=== PATIENT | female | born 1985 | race American Indian/Alaskan Native ===

== ENCOUNTER 2020-07-31 09:31 | Inpatient (IN) | payer OTHER ==
--- NOTE | 2020-07-29 12:53 | History and Physical Report ---
History of Present Illness Date of examination: 07/26/20 Date of admission: 07/31/2020 Chief complaint: here for c/s History of present illness: Pt presents for repeat c/s. She does not desire BTL at this time.All risk/benefits/alternatives were d/w pt and questions were addressed and answered. Consents signed and placed on the chart. EDC Confirmation: 08/06/2020 Gestational Age: 12 3/7 weeks Past History : 5 Term Births: 1 Premature Births: 1 Living Children: 2 Para: 1 Mult. Births: 0 Prev : 0 Aborta: 2 Elect. Ab: 2 Spont. Ab: 0 Ectopics: 0 # 1 Delivery date: 11/13/2008 Weeks Gestation: 41 Delivery type: Vaginal Anesthesia type: epidural Delivery location: [facility] Sex: male weight: 7.94 # 2 Delivery date: 07/27/2011 Weeks Gestation: 31 Delivery type: Anesthesia type: spinal Delivery location: [place] [facility] Sex: Male Comments: Emergency # 3 Delivery date: 05/2018 Delivery type: EAB # 4 Comments: EAB Past Medical History: Reviewed history from 12/25/2008 and no changes required: Negative Past Medical History no hx of dvt while taking ocp Past Surgical History: Reviewed history from 10/26/2018 and no changes required: negative Past Medical History Anesthesia Complications: negative Anemia: negative Autoimmune Disorder: negative Bleeding Disorder: negative Blood Transfusions: negative Breast Disease: negative Diabetes: negative Heart Disease: negative Hypertension: negative Hepatitis/Liver Disease: negative Kidney Disease/UTI: negative Neurologic/Epilepsy/Migraines: negative Phlebitis/Varicosities: negative Psychiatric: negative Pulmonary Disease/Asthma: negative Thyroid Disease: negative Hospitalizations: negative Surgery (Non-gas prover): negative Abnormal PAP: positive TYLER Exposure: negative Infertility: negative Uterine Anomaly: negative Uterine Surgery (not C/S): negative Other Gynecologic Problems: negative Social Hx: Patient is single non smoker Smoking History: Patient currently smokes every day. Infection History Hx of STD: Trich, [place] HIV Risk Eval: no Hepatitis B Risk Eval: low risk Personal hx. of genital herpes: no Partner hx. of genital herpes: no Rash, Viral, or Febrile illness since last LMP? no Varicella/Chicken Pox Status: No Genetic History Congenital Heart Defect: Mom: no Dad: unknown Nichole Disease: Mom: no Dad: unknown Thalassemia Mom: no Dad: unknown Neural Tube Defect Mom: no Dad: unknown Down's Syndrome Mom: no Dad: unknown Greg-Sachs Mom: no Dad: unknown Sickle Cell Disease/Trait Mom: no Dad: unknown Hemophilia Mom: no Dad: unknown Muscular Dystrophy Mom: no Dad: unknown Cystic Fibrosis Mom: no Dad: unknown [place] Chorea Mom: no Dad: unknown Mental Retardation Mom: no Dad: unknown Fragile X Mom: no Dad: unknown Other Genetic/Chromosomal Disorder Mom: no Dad: unknown Child w/other defect Mom: no Dad: unknown Enviromental Exposures Xray Exposure: no Medication, drug, or alcohol use since LMP: no Chemical/Other Exposure: no Exposure to Cat Liter: no Hx of Parvovirus (Fifth Disease): no Occupational Exposure to Children: none Active Medications: VITAMIN AND MINERAL 28-0.8 MG ORAL TABLET ( VIT-FE FUMARATE-FA) ZOFRAN ODT 8 MG ORAL TABLET DISINTEGRATING (ONDANSETRON) 1 po q12hrs prn Current Allergies (reviewed today): * NKDA (Critical) Past History Past Medical History: other (see hpi) Past Surgical History: other (see hpi) [employer] History: other (see hpi) Social history: no significant social history, single - Obstetrical History Expected Date of Delivery: 08/06/20 Actual Gestation: 38 Week(s) 6 Day(s) : 5 Para: 2 Hx # Term Pregnancies: 1 Number of Pregnancies: 1 Induced : 2 Number of Living Children: 2 Review of Systems All systems: negative - Physical Exam Breasts: Positive: deferred Cardiovascular: Normal S1, Normal S2 Lungs: Positive: Clear to auscultation, Normal air movement Abdomen: Positive: normal appearance, soft. Negative: distention, tenderness, guarding Genitourinary (Female): Positive: other (deferred) Extremities: Positive: normal. Negative: tenderness, edema Deep Tendon Reflex Grade: Normal +2 - Obstetrical FHR: auscultation normal Results All other labs normal. Assessment and Plan - Patient Problems (1) 39 weeks gestation of Status: Acute (2) Previous section complicating Status: Acute Plan to address problem: -pt desires repeat c/s -all risk, benefits and alternatives were d/w pt and questions were addressed and answered. -consents signed and given to pt to present at time of c/s on 07/31/2020
[~2020-07-31 09:31] MED LIST: EMLA CREAM 5 GM TP PRN
[2020-07-31] MEDS ORDERED: FAMOTIDINE 20 MG/2 ML INJ IV SCH (10:00)
[2020-07-31] MEDS ORDERED: BICITRA ORAL LIQD 30ML PO SCH (10:00)
[2020-07-31] MEDS ORDERED: OXYTOCIN DRIP 30 UNITS/500 ML BAG IV SCH (10:00)
[2020-07-31] MEDS ORDERED: ceFAZolin/Water 2 GM/20 ML 2 GM/20 ML SYRINGE IV NR (10:00)
[2020-07-31] MEDS ORDERED: LACTATED RINGERS 1,000 ML IV SCH (10:00)
[2020-07-31] MEDS ORDERED: METOCLOPRAMIDE 10 MG/2 ML INJ IV SCH (10:00)
[2020-07-31 10:46] LABS: Basophils % (Auto) 0.4 % (0.0-1.8); Eosinophils # (Auto) 0.2 K/mm3 (0.0-0.4); Eosinophils % (Auto) 2.9 % (0.0-4.3); Hematocrit 33.7 % (30.3-42.9); Hemoglobin 11.2 gm/dl (10.1-14.3); Lymphocytes # (Auto) 1.9 K/mm3 (1.2-5.4); Lymphocytes % (Auto) 27.7 % (13.4-35.0); Mean Corpuscular HGB Conc 33 % (30-34); Mean Corpuscular Volume 84 fl (79-97); Monocytes # (Auto) 0.5 K/mm3 (0.0-0.8); Monocytes % (Auto) 7.5 % (0.0-7.3); Platelet Count 194 K/mm3 (140-440); Red Blood Count 4.04 M/mm3 (3.65-5.03); Red Cell Distribution Width 15.4 % (13.2-15.2)
--- NOTE | 2020-07-31 11:23 | Anesthesia Day of Surgery ---
Anesthesia Day of Surgery - Day of Surgery Patient Examined: Yes Patient H&P Reviewed: Yes Patient is NPO: Yes Beta Blockers: No Cardiac Clearance: No Pulmonary Clearance: No Tylor's Test: N/A
[2020-07-31] MEDS ORDERED: HYDROmorphone 1 MG/1 ML INJ IV PRN (11:25)
[2020-07-31] MEDS ORDERED: ONDANSETRON 4 MG/2 ML INJ IV PRN (11:25)
[2020-07-31] MEDS ORDERED: NALOXONE 0.4 MG/1 ML INJ IV PRN ×2 (11:25→13:34)
--- NOTE | 2020-07-31 11:25 | Anesthesia Consultation ---
Anesthesia Consult and Med Hx Date of service: 07/31/20 - Airway Anesthetic Teeth Evaluation: Poor ROM Head & Neck: Adequate Mental/Hyoid Distance: Adequate Mallampati Class: Class II Intubation Access Assessment: Probably Good - Pulmonary Exam CTA: Yes - Cardiac Exam Cardiac Exam: RRR - Pre-Operative Health Status ASA Pre-Surgery Classification: ASA2 Proposed Anesthetic Plan: Spinal - Pulmonary Hx Smoking: No Hx Asthma: No Hx Respiratory Symptoms: No SOB: No COPD: No Home Oxygen Therapy: No Hx Pneumonia: No Hx Sleep Apnea: No - Cardiovascular System Hx Hypertension: No Hx Coronary Artery Disease: No Hx Heart Attack/AMI: No Hx Angina: No Hx Percutaneous Transluminal Coronary Angioplasty (PTCA): No Hx Cardia Arrhythmia: No Hx Pacemaker: No Hx Internal Defibrillator: No Hx Valvular Heart Disease: No Hx Heart Murmur: No Hx Peripheral Vascular Disease: No - Central Nervous System Hx Neuromuscular Disorder: No Hx Seizures: No CVA: No Hx Back Pain: No Hx Psychiatric Problems: No - Gastrointestinal Hx Ulcer: No Hx Gastroesophageal Reflux Disease: No - Endocrine Hx Renal Disease: No Hx End Stage Renal Disease: No Hx Cirrhosis: No Hx Liver Disease: No Hx Insulin Dependent Diabetes: No Hx Non-Insulin Dependent Diabetes: No Hx Thyroid Disease: No Hx Hypothyroidism: No Hx Hyperthyroidism: No - Hematic Hx Anemia: No Hx Sickle Cell Disease: No - Other Systems Hx Alcohol Use: No Hx Substance Use: No Hx Cancer: No Hx Obesity: Yes
[2020-07-31] MEDS ORDERED: KETOROLAC 30 MG/1 ML INJ ONE (11:45)
[2020-07-31] MEDS ORDERED: BUPIVACAINE/PF (0.5%) 5 MG/1 ML 30 ML VIAL INFILTRATI ONE (11:59)
[2020-07-31] MEDS ORDERED: PHENYLEPHRINE/NS 1,000 MCG/10 ML SYRINGE (OR USE) IV ONE (11:59)
[2020-07-31] MEDS ORDERED: dexAMETHasone 20 MG/5 ML VIAL ONE (11:59)
[2020-07-31] MEDS ORDERED: ONDANSETRON 4 MG/2 ML INJ ONE (12:11)
[2020-07-31] MEDS ORDERED: SODIUM CHLORIDE 0.9% 100 ML ONE (12:11)
--- NOTE | 2020-07-31 12:44 | Progress Note ---
Spinal Anesthesia Block - Spinal Anesthesia Block Start Time: 11:48 Stop Time: 11:53 Performed by:: EILEEN ESCALONA Procedure: Patient IDed, H&P reviewed, all questions and concerns were answered, and consent was signed. Timeout was performed at bedside. Patient in sitting position. Sterile prep and drape was performed. [3] ml of 1% lidocaine skin wheal at L[3]- L [4]. Needle introducer advanced. 25 gauge spinal needle advanced. Clear, free flowing CSF. negative blood, negative paresthesia. Spinal dose given. All needles removed. Patient tolerated procedure.
--- NOTE | 2020-07-31 12:45 | Progress Note ---
Subjective Date of service: 07/31/20 Interval history: Patient consented for TAP block for post surgical pain management. Patient identified, monitors placed, and time out performed. TAP identified bilaterally via ultrasound. Skin prepped bilaterally with [chlorhexidine] and [22g stimuplex] needle advanced to the TAP. [Marcaine 0.22% 35ml] injected under ultrasound guidance on the [left] side. [Marcaine 0.22% 35ml] injected under ultrasound guidance on the [right] side. Negative aspiration every 5mL, No change in heart rate or rhythm. Patient tolerated the procedure well. No apparent complications seen. Objective - Constitutional Vitals: Vital Signs - 12hr 07/31/20 07/31/20 07/31/20 10:25 11:00 11:05 Temperature 98.8 F Pulse Rate 85 85 87 Respiratory 16 Rate Blood Pressure 130/68 Blood Pressure 130/68 [Left] O2 Sat by Pulse 97 97 97 Oximetry 07/31/20 07/31/20 11:10 11:15 Temperature Pulse Rate 86 89 Respiratory Rate Blood Pressure Blood Pressure [Left] O2 Sat by Pulse 97 97 Oximetry - Labs CBC & Chem 7: 07/31/20 10:29 Labs: Abnormal lab results 07/31/20 Range/Units 10:29 RDW 15.4 H (13.2-15.2) % [place] % (Auto) 7.5 H (0.0-7.3) % Regional Anesthesia Block - Regional Anesthesia Block Performed By:: EILEEN ESCALONA
--- NOTE | 2020-07-31 13:33 | Operative Report ---
Operative Report Operative Report: Date of procedure: 07/31/2020 Pre-operative diagnosis: 39 weeks Previous section Post-operative diagnosis: Same Procedure name(s): Repeat low T incision section via Pfannenstiel skin incision Vacuum assisted delivery Lysis of adhesions Surgeon: Dr. Castellanos High Risk Ob: Ms. Rika Ye CST Anesthesia: Spinal EBL: 1 L Urine output: 100 mL of clear urine out at end of the procedure Fluids: 700 mL Findings: Liveborn female weight 6 pounds 12 ounces Apgars of 8 and 9 at 1 and 5 minutes Dense adhesions of the omentum and anterior abdominal wall to the left anterior surface of the uterus Normal ovaries normal tubes bilaterally Indications: Patient presents for scheduled repeat section. All risk benefits and alternatives were discussed with the patient. Consents were signed and placed on the chart. Procedure: Patient was taking to the operating room. Patient was then prepped and draped in sterile fashion after anesthesia was found to be adequate. A low transverse skin incision was made with the scalpel through previous incisional s car and carried down to the underlying layer of fascia with the Bovie. The fascia was then incised in the midline and this incision was extended bilaterally with the Bovie. The superior aspect of the fascia was grasped with Jennifer clamps tented upward and dissected off of the anterior rectus muscles with the scalpel. In similar fashion the inferior aspect of the fascia was grasped with Jennifer clamps tented upward and dissected off of the anterior rectus muscles. The rectus muscles were then bluntly divided in the midline. The peritoneum was identified and entered into sharply. The Sabas retractor was placed the bladder blade was placed. A lower transverse uterine incision was made with the scalpel and extended bilaterally with the bandage scissors. Artificial rupture of membranes was performed yielding [clear amniotic fluid]. The low transverse incision was then extended superiorly to create a T-incision to facilitate delivery of the infant head. The Kiwi vacuum was applied with 2 pop opts with delivery of the head with the third application. Care was taken not to place of the anterior fontanelles. Should be noted that there were 2 nuchal cords that were easily reduced at the time of delivery of the 's head and anterior shoulder. The 's head was then delivered atraumatically. The anterior shoulder and rest of delivered without difficulty. The umbilical cord was clamped x2. The cord was cut. The infant was then placed in sterile bassinet. Cord blood was not collected. The placenta was manually extracted in its entirety. The uterus was exteriorized and cleared of all clots and debris. Adhesions of the omentum and the anterior rectus muscle to the anterior surface of the uterus were taken down. The uterine incision was closed using 0 Vicryl in a running locking fashion. The vertical portion of the T incision was closed in several layers using 0 Vicryl. Excellent hemostasis was noted. The posterior cul-de-sac was copiously irrigated. The uterus was returned to the abdomen. The gutters were also irrigated. Interceed was also placed over the uterine incision. The anterior rectus muscles were reapproximated using 3-0 Vicryl. The anterior rectus fascia was reapproximated using 0 Vicryl in a running fashion. The subcuticular fat was reapproximated using 2-0 Vicryl in a running fashion. The skin was reapprox imated with 4-0 Monocryl in a subcuticular stitch. The patient tolerated the procedure well. Sponge lap and needle counts were all correct x3. Patient was taken to the recovery room awake and in stable condition.
[2020-07-31] MEDS ORDERED: LANOLIN/ZINC/DIMETHICONE (LANSINOH) 7 GM TP PRN (13:34)
[2020-07-31] MEDS ORDERED: WITCH HAZEL/ GLYCERIN PAD TP PRN (13:34)
[2020-07-31] MEDS ORDERED: ACETAMINOPHEN 500 MG TAB PO PRN (13:35)
[2020-07-31] MEDS: D5W/LACTATED RINGERS 1,000 ML IV SCH ×2 (15:21→17:15)
[2020-07-31] MEDS: KETOROLAC 30 MG/1 ML INJ IV PRN ×2 (16:27→21:43)
--- NOTE | 2020-07-31 16:47 | Event Note ---
Date: 07/31/20 Called by RN due to pt having hypotension. Pt baseline bp is 120s/80s. Pt did respond to fluid bolus. Will bolus another 500cc of NS at this time and also check h/h at this time as pt did have 1L EBL. Pt shows no s/sx of bleeding at this time. Will monitor closely. Pt other vitals are stable and pt did have dilauded prior to having vitals checedk on the floor.
[2020-07-31] MEDS: ceFAZolin/NS 1 GM/50 ML 1 GM/50 ML BAG IV SCH (17:15)
[2020-07-31] MEDS ORDERED: SODIUM CHLORIDE 0.9% 500 ML 500 ML IV ONE (17:34)
--- NOTE | 2020-07-31 19:43 | Event Note ---
Date: 07/31/20 Pt feeling better after IV fluid bolus. She denies any dizziness, sob, chest pain. H/H has been drawn and results pending. Pt states she is feeling better. I d/w that she may have been feeling the affects of the iv pain meds but we will con't to closely monitor. Pt states understanding. No c/o at his time.
[2020-07-31 20:01] LABS: Hematocrit 31.9 % (30.3-42.9); Hemoglobin 10.4 gm/dl (10.1-14.3)
[2020-07-31] MEDS: SIMETHICONE 80 MG CHEW TAB PO PRN (21:43)
[2020-08-01] MEDS: ceFAZolin/NS 1 GM/50 ML 1 GM/50 ML BAG IV SCH (00:59)
[2020-08-01 02:17] LABS: Hematocrit 29.5 % (30.3-42.9); Hemoglobin 9.5 gm/dl (10.1-14.3)
[2020-08-01] MEDS: KETOROLAC 30 MG/1 ML INJ IV PRN ×2 (04:40→12:08)
--- NOTE | 2020-08-01 05:52 | Post Anesthesia Evaluation ---
- Post Anesthesia Evaluation Patient Participated: Yes Airway Patent: Yes Stable Respiratory Function: No Nausea/Vomiting: No Temp > 96.8F: Yes Pain Manageable: Yes Adequeate Hydration: Yes Anesthesia Complications: No Block Receding Appropriately: Yes Patient on Ventilator: No
[2020-08-01] MEDS ORDERED: DIPHtheria,PERTUSSIS(ACELL),TETANUS VACCINE/PF 0.5 ML VIAL IM ONE (06:00)
--- NOTE | 2020-08-01 07:23 | Progress Note ---
Assessment and Plan - Patient Problems (1) delivery delivered Onset Date: ~07/31/20 Current Visit: Yes Status: Acute Plan to address problem: Pt alert No c/o voiced. Preparing for AM toilet. VSS FF below umb Lochia scant. Dressing D&I To be removed after shower. Encouraged pt to use abdominal binder when up. H&H 03/08 no s/sx of anemia. Doing well s/p Repeat c/s P: continue pathway Advance diet and activity as tolerated. Subjective - Subjective Date of service: 08/01/20 (pt in good spirits; reviewed activities and wound care this AM) Principal diagnosis: Day#1 s/p repeat c/s Patient reports: appetite normal, voiding normally, pain well controlled, ambulating normally [place]: doing well Objective - Vital Signs Latest vital signs: Vital Signs Temp Pulse Resp BP BP Pulse Ox 08/01/20 05:10 18 08/01/20 04:40 18 08/01/20 01:54 97.8 F 69 18 108/53 96 07/31/20 22:13 18 07/31/20 21:50 97.2 F L 57 L 18 108/54 97 07/31/20 21:43 18 07/31/20 19:10 65 101/52 07/31/20 16:08 63 90/39 07/31/20 15:23 96.7 F L 66 18 88/42 97 07/31/20 14:15 68 15 94/43 96 07/31/20 14:00 53 L 17 97/51 97 07/31/20 13:45 54 L 19 100/48 97 07/31/20 13:40 58 L 19 106/49 97 07/31/20 13:35 63 16 105/30 98 07/31/20 13:32 96.7 F L 54 L 14 104/42 98 07/31/20 11:15 89 97 07/31/20 11:10 86 97 07/31/20 11:05 87 97 07/31/20 11:00 85 130/68 97 07/31/20 10:25 98.8 F 85 16 130/68 97 Intake and Output 07/31/20 08/01/20 08/01/20 22:59 06:59 14:59 Intake Total 407.5 180 Output Total 200 750 Balance 207.5 -570 Intake: IV 287.5 ANCEF/NS 1 GM/50 ML 1 gm 50 In 50 ml @ 100 mls/hr IV Q8H BEN Rx#:[id number] D5lr 1,000 ml @ 125 mls/ 237.5 hr IV DIRECT BEN Rx#: [id number] Oral 120 Intake, Free Water 180 Output: Urine 200 750 Indwelling Catheter 200 450 Void 300 Other: Total, Intake Amount 120 Total, Output Amount 200 300 - Exam Breasts: Present: normal Cardiovascular: Present: Regular rate Lungs: Present: Normal air movement Abdomen: Present: normal appearance, soft Uterus: Present: normal, fundal height below umbilicus Extremities: Present: normal Deep Tendon Reflex Grade: Normal +2 Incision: Present: normal, dry, intact, dressed (to be removed this AM) - Labs Labs: Abnormal lab results 07/31/20 08/01/20 Range/Units 10:29 02:07 Hgb 9.5 L (10.1-14.3) gm/dl Hct 29.5 L (30.3-42.9) % RDW 15.4 H (13.2-15.2) % [place] % (Auto) 7.5 H (0.0-7.3) %
[2020-08-01] MEDS: SIMETHICONE 80 MG CHEW TAB PO PRN ×2 (10:17→15:40)
[2020-08-01] MEDS: HYDROcodone/ACETAMINOPHEN 5-325 MG TAB PO PRN ×3 (10:17→21:49)
[2020-08-01] MEDS: MAGNESIUM HYDROXIDE (MOM) ORAL LIQD UDC PO PRN ×2 (12:08→15:40)
[2020-08-01] MEDS: NITROFURANTOIN MONOHYD/M-CRYST 100 MG CAP PO SCH ×2 (15:41→21:40)
[2020-08-01] MEDS: IBUPROFEN 800 MG TAB PO PRN (18:05)
[2020-08-02] MEDS: HYDROcodone/ACETAMINOPHEN 5-325 MG TAB PO PRN ×3 (04:18→12:26)
[2020-08-02] MEDS: IBUPROFEN 800 MG TAB PO PRN (06:02)
[2020-08-02] MEDS: NITROFURANTOIN MONOHYD/M-CRYST 100 MG CAP PO SCH (10:05)
--- NOTE | 2020-08-02 11:04 | Discharge Summary ---
Providers - Providers Date of Admission: 07/31/20 09:31 Date of discharge: 08/02/20 (desires d/c home) Attending physician: TATO LUIS Primary care physician: TATO LUIS Hospitalization Reason for admission: repeat c/s Condition: Good Pertinent studies: postop H&H 9.5/29.5, asymptomatic anemia s/p acute blood loss Procedures: repeat c/s Hospital course: uncomplicated repeat c/s and postop course Disposition: MA-01 TO HOME OR SELFCARE - Discharge Diagnoses (1) delivery delivered Status: Acute Core Measure Documentation - Palliative Care Palliative Care/ Comfort Measures: Not Applicable - Core Measures Any of the following diagnoses?: none Exam - Constitutional Vitals: Temp Pulse Resp BP Pulse Ox 97.9 F 70 18 113/51 96 08/02/20 08:02 08/02/20 08:02 08/02/20 08:10 08/02/20 08:02 08/02/20 08:02 General appearance: Present: no acute distress, well-nourished - EENT Eyes: Present: PERRL ENT: hearing intact, clear oral mucosa - Neck Neck: Present: supple, normal ROM - Respiratory Respiratory effort: normal Respiratory: bilateral: CTA - Abdominal General gastrointestinal: Present: soft, non-tender, non-distended, normal bowel sounds Female genitourinary: Present: normal - Rectal Rectal Exam: deferred - Integumentary Integumentary: Present: clear, warm, dry - Musculoskeletal Musculoskeletal: gait normal, strength equal bilaterally - Psychiatric Psychiatric: appropriate mood/affect, intact judgment & insight - Neurologic Neurologic: CNII-XII intact, moves all extremities - Additional findings Additional findings: incision D&I, fundus firm, lochia scant, Plan Activity: advance as tolerated Diet: regular Wound: open to air, keep clean and dry Follow up with: TATO LUIS MD [Primary Care Provider] - 7 Days (Congratulations! Please call [phone] to schedule your incision check in 1 week. Call for any questions or concerns. ) Prescriptions: Docusate Sodium [Colace] 100 mg PO BID PRN #60 capsule PRN Reason: Constipation Lidocain2.5%/Prilocai2.5% [Emla] 2 gm TP ONCE #1 tube Ferrous Sulfate [Feosol 325 MG tab] 325 mg PO QDAY #60 tablet Nitrofurantoin Alexander/M-Cryst [Macrobid CAP] 100 mg PO Q12HR #14 capsule Ibuprofen [Motrin 800 MG tab] 800 mg PO Q8HR PRN #30 tablet PRN Reason: Pain, Moderate (4-6) oxyCODONE /ACETAMINOPHEN [Percocet 5/325] 1 tab PO Q4HR #30 tab
[2020-08-02 15:26] VITALS: BP 110/72
== END 2020-08-02 15:26 | disposition home or self-care (01) | DRG 787 ==
LOC: APU 09:31 → OB 15:06
PROVIDERS: ADMIT Obstetrics & Gynecology; ATTEND Obstetrics & Gynecology
PROC: 10D00Z1 Extraction of Products of Conception, Low, Open Approach (ICD-10-PCS; principal; 2020-07-31)
PROC: 3E0R3BZ Introduction of Anesthetic Agent into Spinal Canal, Percutaneous Approach (ICD-10-PCS; 2020-07-31)
PROC: 3E0T3BZ Introduction of Anesthetic Agent into Peripheral Nerves and Plexi, Percutaneous Approach (ICD-10-PCS; 2020-07-31)
DX: O34.211 Maternal care for low transverse scar from previous cesarean delivery (principal); D62 Acute posthemorrhagic anemia; Z20.822 Contact with and (suspected) exposure to COVID-19; O90.81 Anemia of the puerperium; Z3A.39 39 weeks gestation of pregnancy; Z37.0 Single live birth
CPT/HCPCS: 36415; 85014; 85018; 85025; 86850; 86900; 86901; 87086; G0378; J0690; J1100; J1170; J1885; J2370; J2405; J2765; J3490; J7040; J7120; J7121; U0003